=== PATIENT | male | born 1975 | race American Indian/Alaskan Native ===

== ENCOUNTER 2021-09-22 11:34 | Emergency (ER) | payer SELFPAY ==
[2021-09-22 12:05] VITALS: BP 140/91
[2021-09-22] MEDS ORDERED: MORPHINE 2 MG/1 ML INJ IV ONE (12:14)
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
[2021-09-22] MEDS ORDERED: LIDOCAINE (1%) 10 MG/1 ML VIAL 20 ML MDV INFILTRATI ONE (20:03)
[2021-09-22] MEDS ORDERED: oxyCODONE /ACETAMINOPHEN 5-325MG TAB PO ONE (20:04)
== END 2021-09-22 23:13 | disposition home or self-care (01) ==
LOC: ED 11:34
DX: S01.81XA Laceration without foreign body of other part of head, initial encounter (principal); S01.01XA Laceration without foreign body of scalp, initial encounter; S62.607A Fracture of unspecified phalanx of left little finger, initial encounter for closed fracture; E11.9 Type 2 diabetes mellitus without complications; Y08.89XA Assault by other specified means, initial encounter; Y93.89 Activity, other specified; Y92.89 Other specified places as the place of occurrence of the external cause; Y99.8 Other external cause status
CPT/HCPCS: 12011; 70450; 73070; 73120; 73560; 73590; 96374; 99284; J2270